=== PATIENT | male | born 1950 | race Caucasian/White ===

== ENCOUNTER 2022-03-16 16:12 | Emergency (ER) | payer OTHER ==
[~2022-03-16] VITALS: Ht 182.8 cm; Wt 97.5 kg
[2022-03-16] MEDS ORDERED: CEPHALEXIN500 M1 PO (17:25)
== END 2022-03-16 17:45 | disposition home or self-care (01) ==
LOC: ED 16:12
DX: S61.421A Laceration with foreign body of right hand, initial encounter (principal); W45.8XXA Other foreign body or object entering through skin, initial encounter; Y93.89 Activity, other specified; Y92.89 Other specified places as the place of occurrence of the external cause; Y99.8 Other external cause status